=== PATIENT | female | born 1995 | race Caucasian/White ===

== ENCOUNTER 2018-07-01 17:13 | Emergency (ER) | payer SELFPAY ==
[~2018-07-01] VITALS: Ht 162.6 cm; Wt 68.0 kg
--- NOTE | 2018-07-01 17:20 | NUR ---
SEEN BY TIANNA. PT IS AWAKE AND REFUSING TO BE TREATED STATING "I NEED TO BE IN THE REHAB." PT IS [id number]. AMA FORM SIGNED. DISCHARGE IN STABLE CONDITION.
== END 2018-07-01 17:24 | disposition left against medical advice (07) ==
LOC: ER 17:16
DX: F19.10 Other psychoactive substance abuse, uncomplicated (principal)